=== PATIENT | male | born 1990 | race Caucasian/White ===

== ENCOUNTER 2017-06-25 09:31 | Emergency (ER) | payer BC, SELFPAY | END 2017-06-25 11:03 | disposition home or self-care (01) | PROVIDERS: Emergency Provider Nurse Practitioner Family; Family Provider Internal Medicine Adolescent Medicine; Visit Provider Nurse Practitioner Family | DX: R11.2 Nausea with vomiting, unspecified (principal); R19.7 Diarrhea, unspecified; J45.909 Unspecified asthma, uncomplicated | CPT/HCPCS: 99201 ==

== ENCOUNTER → 2018-09-16 08:31 | Outpatient (CLI) | payer BC, SELFPAY ==
--- NOTE | 2018-09-16 08:39 | US_ITS ---
US abdomen limited History:Upper abdominal pain with nausea and vomiting Ordering Physician:Brandon Pittman MD Patient Age: 27 years Comparison:None Findings: Pancreas:Unremarkable. No obvious mass or abnormal fluid collection. No ductal dilatation Liver:Unremarkable. No obvious mass or abnormal fluid collection. No ductal dilatation Right Kidney:Unremarkable. Normal size and echogenicity. No hydronephrosis Gallbladder:No gallstones, gallbladder wall thickening, pericholecystic fluid, or biliary dilatation. There is a Phrygian catheter present as a normal variant with a small amount sludge noted in the fundus of the gallbladder. Common bile duct is normal at 3 mm Impression: 1. Small amount sludge in the fundus of the gallbladder. 2. Otherwise negative right upper quadrant ultrasound
== END ==
PROVIDERS: PCP Internal Medicine Adolescent Medicine; Visit Provider Internal Medicine Adolescent Medicine
DX: R10.11 Right upper quadrant pain (principal)
CPT/HCPCS: 76705

== ENCOUNTER 2019-10-30 01:06 | Emergency (ER) | payer BC, SELFPAY ==
[2019-10-30 01:24] VITALS: BP 141/86; PULSE 133; RESP 24; TEMP 36.6; O2SAT 95; BMI 30.8
[2019-10-30 01:36] VITALS: BP 130/82; PULSE 89; RESP 16; O2SAT 95
--- NOTE | 2019-10-30 01:41 | PC.NURSE ---
I updated pt's and she will come back to pick him up when he is ready for discharge
[2019-10-30 01:45] LABS: Basophils # 0.2 K/mm3 (0-0.2); Basophils % 3.2 % (0.1-2.0); Eosinophils # 0.1 K/mm3 (0.0-0.4); Eosinophils % 1.9 % (0.1-12.0); Hematocrit 56.4 % (42.0-52.0); Lymphocytes # 3.3 K/mm3 (0.7-4.5); Lymphocytes % 46.2 % (10-50); Mean Corpuscular HGB Conc 34.5 g/dL (31.8-35.4); Mean Corpuscular Hemoglobin 29.6 pg (27.0-31.2); Mean Corpuscular Volume 85.8 fl (80-94); Mean Platelet Volume 7.6 fl (7.4-10.4); Monocytes # 0.4 K/mm3 (0.1-1.0); Monocytes % 5.4 % (1.7-9.3); Neutrophils # 3.1 K/mm3 (1.8-7.8); Neutrophils % 43.2 % (37.0-80.0); Platelet Count 274 K/mm3 (142-424); Red Blood Count 6.57 M/mm3 (4.60-6.20); Red Cell Distribution Width 12.3 % (11.5-17.5); White Blood Count 7.1 K/mm3 (4.8-10.8)
[2019-10-30 01:48] LABS: Chloride 106 mmol/L (98-107); Sodium 141 mmol/L (136-145)
--- NOTE | 2019-10-30 01:49 | PC.NURSE ---
Pt responded well to IV treatment, resting comfortably with normal resp. Pt states he feels much better and denies burning or airway issues
[2019-10-30 01:50] LABS: Alanine Aminotransferase 106 U/L (12-78); Aspartate Amino Transferase 59 U/L (17-59); Blood Urea Nitrogen 17 mg/dl (9-20); Creatinine Clearance Estimated 151 mL/min (50-200); Estimated Glomerular Filt Rate 79 ml/min (>60); GFR (African American) 95 ML/MIN (>60); Hemoglobin 19.7 g/dL (14.1-18.0)
[2019-10-30 01:51] LABS: Albumin Level 4.6 g/dl (3.5-5.0); Albumin/Globulin Ratio 1.3 (1.1-1.8); Alkaline Phosphatase 61 U/L (38-126); Bilirubin,Total 0.5 mg/dl (0.2-1.3); Calcium 9.6 mg/dl (8.4-10.2); Carbon Dioxide 24 mmol/L (22.0-30.0); Globulin 3.5 g/dL (1.3-3.2); Glucose 115 mg/dl (74-100); Total Protein,Serum 8.1 g/dl (6.3-8.2)
--- NOTE | 2019-10-30 01:59 | HMH.EDALLER ---
ED Disposition Clinical Impression: Allergic reaction Qualifiers: Encounter type: initial encounter Qualified Code(s): T78.40XA - Allergy, unspecified, initial encounter Disposition: Home, Self-Care Condition on Discharge: Good Instructions: DI for General Allergic Reactions Additional Instructions: fluids and see pcp and dr grimaldo for follow up Prescriptions: predniSONE [Prednisone 20mg Tab] 20 mg PO BID #10 tab Transmission Status: Pending to [facility] #[id number] Referrals: Brandon Pittman MD [Primary Care Provider] - Asad Grimaldo [Referring] - - Critical Care Critical Care Time: No Attestation: On 10/30/19, the high probability of a clinically significant, sudden or life threatening deterioration of the following system(s) required my full and direct attention, intervention and personal management. The time I documented below is in addition to time spent performing reported procedures but includes the following listed in this critical care notation. Medical Decision Making - Medical Records Medical records reviewed: Yes: I reviewed the patient's medical records. - Vasu Inquiry Pt receiving controlled substance: No Vital Signs: 10/30/19 01:24 10/30/19 01:36 Temperature 97.8 F Temperature Source Oral Pulse Rate [Right] 133 H 89 Respiratory Rate 24 16 Blood Pressure [Right Arm] 141/86 H 130/82 Blood Pressure Mean [Right Arm] 104 98 Blood Pressure Source [Right Arm] Automatic Cuff Automatic Cuff Blood Pressure Position [Right Arm] Supine Supine 02 Sat by Pulse Oximetry 95 95 Oxygen Delivery Method Room Air Room Air - Lab Data Lab results reviewed: Yes: I reviewed the patient's lab results. Lab Results 10/30/19 01:15: WBC 7.1, RBC 6.57 H, Hgb 19.7 H*, Hct 56.4 H, MCV 85.8, MCH 29.6, MCHC 34.5, RDW 12.3, Plt Count 274, MPV 7.6, Neut % (Auto) 43.2, Lymph % (Auto) 46.2, [place] % (Auto) 5.4, Eos % (Auto) 1.9, Baso % (Auto) 3.2 H, Neut # (Auto) 3.1, Lymph # (Auto) 3.3, [place] # (Auto) 0.4, Eos # (Auto) 0.1, Baso # (Auto) 0.2 10/30/19 01:15: Sodium 141, Potassium 4.0, Chloride 106, Carbon Dioxide 24, Anion Gap 15.0, BUN 17, Creatinine 1.10, Estimated Creat Clear 151, Estimated GFR 79, Est GFR ( Amer) 95, Glucose 115 H, Calcium 9.6, Total Bilirubin 0.5, AST 59, ALT 106 H, Alkaline Phosphatase 61, Total Protein 8.1, Albumin 4.6, Globulin 3.5 H, Albumin/Globulin Ratio 1.3 Result diagrams: 10/30/19 01:15 10/30/19 01:15 Orders (Tests/Meds): ED MEDICATIONS Generic Name Dose Route Start Last Admin Trade Name Freq PRN Reason Stop Dose Admin Sodium Chloride 1,000 mls @ 999 mls/hr 10/30/19 01:45 10/30/19 01:30 Sod Chlor 0.9% 1000ml Bag IV 10/30/19 02:45 999 mls/hr .Q1H1M OMAR Administration Sodium Chloride 8 ml 10/30/19 01:35 10/30/19 01:30 Sodium Chloride 0.9% 10ml Vial IV 11/29/19 01:34 8 ml NEEDED PRN Administration dilute pepcid Discontinued Medications Generic Name Dose Route Start Last Admin Trade Name Freq PRN Reason Stop Dose Admin Diphenhydramine HCl 50 mg 10/30/19 01:35 10/30/19 01:30 Benadryl 50mg/1ml Vial IV 10/30/19 01:36 50 mg ONCE ONE Administration Famotidine 20 mg 10/30/19 01:35 10/30/19 01:30 Pepcid 20mg/2ml Vial IV 10/30/19 01:36 20 mg ONCE ONE Administration Methylprednisolone Sodium Succinate 125 mg 10/30/19 01:35 10/30/19 01:30 Solu-Medrol 125mg/2ml Vial IV 10/30/19 01:36 125 mg ONCE ONE Administration Allergic React/Insect Bite HPI - General Chief complaint: Allergic Reaction Stated complaint: rash on shoulders/ back/ body Time Seen by Provider: 10/30/19 01:30 Mode of Arrival - ED Triage: Ambulatory Source of Information: Patient, Medical Record Limitations: No Limitations - History of Present Illness MD complaint: allergic reaction Onset (ago): hour(s) Symptoms: rash, itching, difficulty breathing Treatment prior to arrival: none Allergies/Adverse Reactions: Allergi
[2019-10-30 02:21] VITALS: BP 132/78; PULSE 76; RESP 14; TEMP 36.6; O2SAT 96
== END 2019-10-30 02:24 | disposition home or self-care (01) ==
PROVIDERS: Emergency Provider Emergency Medicine; PCP Internal Medicine Adolescent Medicine
DX: T78.40XA Allergy, unspecified, initial encounter (principal)
CPT/HCPCS: 80053; 85025; 96365; 96375; 99283

== ENCOUNTER 2020-02-23 13:51 | Emergency (ER) | payer BC, SELFPAY ==
[2020-02-23 14:05] VITALS: BMI 31.4
--- NOTE | 2020-02-23 14:06 | XR_ITS ---
PROCEDURE: XR ANKLE RT MIN 3V CLINICAL INDICATION: INJURY Posttraumatic pain COMPARISON: CR XR TIBIA FIBULA RT 2V from 02/23/2020 FINDINGS: No acute fracture or dislocation. Joint space is well preserved. The ankle mortise is preserved. 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 This appears well circumscribed on the lateral view there is less well circumscribed on the AP view. Follow-up suggested to confirm stability. The proximal mid aspect of the tibia and fibula have an unremarkable appearance. IMPRESSION: No acute fracture. 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 Recommend short-term radiographic follow-up in 3 months to confirm stability Dictated by: Dar Pacheco MD 02/23/2020 14:41 Dar Pacheco MD in [place] 02/23/2020 14:41
[2020-02-23 14:09] VITALS: BP 139/84; PULSE 87; RESP 20; TEMP 36.8; O2SAT 99; BMI 31.4
--- NOTE | 2020-02-23 14:15 | HMH.EDUTC ---
[facility] [place] Clinical Impression: High ankle sprain Qualifiers: Encounter type: initial encounter Laterality: right Qualified Code(s): S93.491A - Sprain of other ligament of right ankle, initial encounter Disposition: Home, Self-Care Condition on Discharge: Good Instructions: How to Use Crutches, Ankle Sprain, DI for Ankle Sprain, How To Perform RICE (Rest, Ice, Compress, Elevate) Additional Instructions: *weight bearing as tolerated *RICE, Rest the extremity, Ice 15-20 minutes 3-4 times daily, Compress- wear the ashish wrap as discussed as much as possible to help reduce swelling and pain, Elevate the extremity when at rest *Ashish wrap is for support and help control swelling, use it except in the shower. Be sure that is not to tight but not to loose either *Elevate when resting *Ibuprofen every 6-8 hours as needed for pain an inflammation. If need something more can take Tylenol in between doses of Ibuprofen to help Immediately follow up with your family doctor for new or worsening of symptoms, or no noticeable improvement over the next 3-[address] Wilburn, call office and make appointment Return in needed Referrals: Brandon Pittman MD [Primary Care Provider] - As needed Nicole Wilburn DPM [Staff Physician] - Forms: Work/School Release Time of Disposition: 15:14 Medical Decision Making - Vasu Inquiry Pt receiving controlled substance: No Vasu was queried for this patient: No Vital Signs: 02/23/20 14:09 Temperature 98.3 F Temperature Source Oral Pulse Rate [Left Brachial] 87 Respiratory Rate 20 Blood Pressure [Left Arm] 139/84 Blood Pressure Mean [Left Arm] 102 Blood Pressure Source [Left Arm] Automatic Cuff Blood Pressure Position [Left Arm] Sitting 02 Sat by Pulse Oximetry 99 Oxygen Delivery Method Room Air - Radiology Data #1 Image(s): Tib/Fib Image Reviewed: Yes I have reviewed radiologist's interpretation No acute fracture. 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 Recommend short-term radiographic follow-up in 3 months to confirm stability #2 Image(s): Ankle Image Reviewed: Yes I have reviewed radiologist's interpretation No acute fracture. 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 Recommend short-term radiographic follow-up in 3 months to confirm stability [facility] [place] - General Stated complaint: [id number] right ankle pain,home accident Time Seen by Provider: 02/23/20 14:10 Mode of Arrival: Ambulatory Source of Information: Patient Limitations: No Limitations Description of Symptoms (Recalled from Triage Doc. by RN): PATIENT C/O RIGHT ANKLE PAIN AND SWELLING AFTER FALLING AND TWISTING IT WHILE PLAYING BASKETBALL LAST NIGHT HEENT Symptoms (Recalled from RN notes): No Resp Symptoms (Recalled from RN notes): No Skin Symptoms (Recalled from RN notes): No MS Symptoms (Recalled from RN notes): Yes Functional Status (Recalled from RN notes): WNL - History of Present Illness Provider Complaint: Patient states that he was playing basketball last night and when he came down his right foot went into a crack in the concrete and he rolled his right ankle and felt a pop in his right lower leg/ankle area States that he has been able to walk on it but when he turns it it shoots from his ankle up into his lower leg States that today was hurting worse so he came in to get it checked - Related Data Home Medications Medication Instructions Recorded Confirmed No Known Home Medications 02/23/20 02/23/20 Allergies Allergy/AdvReac Type Severity Reaction Status Date / Time No Known Allergies Allergy Verified 09/08/18 09:20 - Worker's Comp Is this a Worker's Comp case?: No [facility] History - Hepatitis A Screen Drug use history?: No High risk sexual behaviors?: No History of sexually transmitted infection?: No Currently
[2020-02-23 15:20] VITALS: BP 139/84; PULSE 87; RESP 20; TEMP 36.8; O2SAT 99
== END 2020-02-23 15:21 | disposition home or self-care (01) ==
PROVIDERS: Emergency Provider Nurse Practitioner; PCP Internal Medicine Adolescent Medicine
DX: S93.491A Sprain of other ligament of right ankle, initial encounter (principal); X50.1XXA Overexertion from prolonged static or awkward postures, initial encounter; Y93.67 Activity, basketball; Y92.89 Other specified places as the place of occurrence of the external cause
CPT/HCPCS: 29515; 73590; 73610; 99202

== ENCOUNTER 2020-11-28 09:04 | Emergency (ER) | payer BC, SELFPAY ==
--- NOTE | 2020-11-28 09:41 | HMH.EDUTC ---
[facility] [place] Clinical Impression: Sinusitis Qualifiers: Sinusitis location: unspecified location Chronicity: acute Recurrence: non-recurrent Qualified Code(s): J01.90 - Acute sinusitis, unspecified Pharyngitis Qualifiers: Pharyngitis/tonsillitis etiology: unspecified etiology Qualified Code(s): J02.9 - Acute pharyngitis, unspecified Disposition: Home, Self-Care Condition on Discharge: Good Instructions: DI for Sinusitis Additional Instructions: Drink plenty of fluids. Take tylenol or ibuprofen for pain or fever. Take the medications as directed. Follow up with your regular doctor. GO TO THE ER FOR ANY WORSENING SYMPTOMS The cough medication (promethazine dm) will make you drowsy, so don't drive or operate heavy machinery after taking it. Prescriptions: Promethazine/Dextromethorphan [Promethazine-Dm Syrup] 5 ml PO Q6HP PRN #240 syrup PRN Reason: Cough Transmission Status: Received by [facility] #[id number] methylPREDNISolone [Medrol] 4 mg PO DIRECTED 6 Days #21 tab.ds.pk Transmission Status: Received by [facility] #[id number] Azithromycin [Z-Alexander 250mg Tab*] 250 mg PO UD DOSE PK #6 tab Transmission Status: Received by [facility] #[id number] Referrals: Brandon Pittman MD [Primary Care Provider] - Forms: Work/School Release Time of Disposition: 09:45 Medical Decision Making - Medical Records Medical records reviewed: No: I reviewed the patient's medical records. - Vasu Inquiry Pt receiving controlled substance: No Vital Signs: 11/28/20 09:44 11/28/20 09:47 Temperature 98.1 F 98.1 F Temperature Source Oral Pulse Rate 89 Pulse Rate [Left] 89 Respiratory Rate 19 19 Blood Pressure 127/84 Blood Pressure [Right Arm] 127/84 Blood Pressure Mean [Right Arm] 98 02 Sat by Pulse Oximetry 96 - Lab Data Lab results reviewed: Yes: I reviewed the patient's lab results. Lab Results 11/28/20 10:22: Strep Scn Rapid Clinic Negative Orders (Tests/Meds): ORDERS Category Date Time Status Strep Screen Confirmation Stat Micro 11/28/20 10:22 Received [facility] [place] HPI - General Stated complaint: head congestion Time Seen by Provider: 11/28/20 09:44 - History of Present Illness Provider Complaint: He states that he has had sinus congestion, sore throat, sinus pressure for the past 1 week. He has began to have low grade fever and ear pain. - Related Data Previous Rx's Medication Instructions Recorded Azithromycin [Z-Alexander 250mg Tab*] 250 mg PO UD DOSE PK #6 tab 11/28/20 Promethazine/Dextromethorphan 5 ml PO Q6HP PRN #240 syrup 11/28/20 [Promethazine-Dm Syrup] methylPREDNISolone [Medrol] 4 mg PO DIRECTED 6 Days #21 11/28/20 tab.ds.pk Allergies Allergy/AdvReac Type Severity Reaction Status Date / Time No Known Allergies Allergy Verified 11/28/20 09:47 [facility] History - Hepatitis A Screen Attestation statement:: This patient has been screened for Hepatitis A risk factors. I have reviewed the patient's past medical history: Yes Medical History: Denies:: Cancer, Diabetes Mellitus Type 1, Diabetes Mellitus Type 2, MRSA Other Surgeries: Yes: Other Amputation: No Fractures: No Comment: right hand surgery, kidney stones - Social History Smoking Status: Never smoker Tobacco Type: cigarettes Alcohol Intake: never Alcohol Intake Frequency:: holidays/special occasions only Occupational Status: other Household Members: family Family Hx:: No significant family history ROS Obtained: Yes All systems reviewed & no additional complaints - Constitutional Constitutional: Reports chills, Reports fever(s), Reports poor appetite, Reports malaise - Eyes Eyes: Denies eye discharge - ENT Ears, Nose, Mouth, and Throat: Reports as per HPI - Cardiovascular Cardiovascular: Denies chest pain - Respiratory Respiratory: Reports chest congestion, Reports cough, Denies dyspnea, Denies stridor, Denies wheezing - Gastrointestinal Nabeel
[2020-11-28 09:44] VITALS: BP 127/84; PULSE 89; RESP 19; TEMP 36.7; O2SAT 96; BMI 30.8
[2020-11-28 09:47] VITALS: BP 127/84; PULSE 89; RESP 19; TEMP 36.7; O2SAT 96
[2020-11-28 10:57] LABS: UTC Strep Screen (Rapid) Negative (Negative)
== END 2020-11-28 09:48 | disposition home or self-care (01) ==
PROVIDERS: Emergency Provider Nurse Practitioner Family; PCP Internal Medicine Adolescent Medicine
DX: J01.90 Acute sinusitis, unspecified (principal); J02.9 Acute pharyngitis, unspecified
CPT/HCPCS: 87880; 99202; G0463

== ENCOUNTER 2021-01-30 19:06 | Emergency (ER) | payer BC, SELFPAY ==
[2021-01-30 19:07] VITALS: BP 143/85; PULSE 97; RESP 18; TEMP 36.8; O2SAT 98; BMI 30.6
--- NOTE | 2021-01-30 19:23 | HMH.EDALLER ---
ED Disposition Clinical Impression: Urticaria Disposition: Home, Self-Care Condition on Discharge: Good Instructions: DI for Rash Prescriptions: methylPREDNISolone [Medrol 4mg tab] 4 mg PO DIRECTED #21 tab Transmission Status: Pending to [facility] #[id number] Referrals: Brandon Pittman MD [Primary Care Provider] - - Critical Care Critical Care Time: No Attestation: On 01/30/21, the high probability of a clinically significant, sudden or life threatening deterioration of the following system(s) required my full and direct attention, intervention and personal management. The time I documented below is in addition to time spent performing reported procedures but includes the following listed in this critical care notation. Medical Decision Making - Medical Records Medical records reviewed: Yes: I reviewed the patient's medical records. - Vasu Inquiry Pt receiving controlled substance: No Vital Signs: 01/30/21 19:07 01/30/21 20:05 Temperature 98.2 F 98 F Temperature Source Oral Oral Pulse Rate 76 Pulse Rate [Right] 97 H Respiratory Rate 18 17 Blood Pressure 94/45 L Blood Pressure [Right Arm] 143/85 H Blood Pressure Mean [Right Arm] 104 Blood Pressure Source Automatic Cuff Blood Pressure Source [Right Arm] Automatic Cuff Blood Pressure Position Supine 02 Sat by Pulse Oximetry 98 97 Oxygen Delivery Method Room Air Room Air Orders (Tests/Meds): ED MEDICATIONS Generic Name Dose Route Start Last Admin Trade Name Freq PRN Reason Stop Dose Admin Sodium Chloride 1,000 mls @ 999 mls/hr 01/30/21 19:30 01/30/21 19:25 Sod Chlor 0.9% 1000ml Bag IV 01/30/21 20:30 999 mls/hr .Q1H1M OMAR Administration Sodium Chloride 8 ml 01/30/21 19:19 Sodium Chloride 0.9% 10ml Vial IV 03/01/21 19:18 NEEDED PRN dilute pepcid Discontinued Medications Generic Name Dose Route Start Last Admin Trade Name Freq PRN Reason Stop Dose Admin Diphenhydramine HCl 25 mg 01/30/21 19:19 01/30/21 19:25 Diphenhydramine 50mg/Ml Vial IV 01/30/21 19:20 25 mg ONCE ONE Administration Famotidine 20 mg 01/30/21 19:19 01/30/21 19:25 Famotidine 20mg/2ml Vial IV 01/30/21 19:20 20 mg ONCE ONE Administration Methylprednisolone Sodium Succinate 125 mg 01/30/21 19:19 01/30/21 19:25 Methylprednisolone Sod Succ 125mg Vial IV 01/30/21 19:20 125 mg ONCE ONE Administration - Reevaluation(s) Time: 20:20 Reevaluation #1: On reevaluation, patient tolerated treatment well. His itching is improved. Rash is also improved. Repeat examination does not show any abnormalities in the oropharynx, no pooling secretions, no respiratory distress. Patient was given strict return precautions. Needs repeat evaluation in 24 hours. Patient verbalized understanding. Medical Decision Narrative: 30-year-old male presented to the emergency department with a rash. Findings are consistent with acute urticaria. Patient has no evidence of anaphylaxis. No airway compromise. Patient be treated symptomatically reevaluated. Patient is unsure of what his trigger was. Allergic React/Insect Bite HPI - General Chief complaint: Allergic Reaction Stated complaint: hives on back Time Seen by Provider: 01/30/21 19:10 Mode of Arrival - ED Triage: Ambulatory Limitations: No Limitations - History of Present Illness HPI narrative: This is a 30-year-old male presented to the emergency department with possible allergic reaction. Patient's had numerous episodes of this before in the past. He is unsure what the exact contact was. However about 1 hour ago the patient started noticing some hives on his back, upper torso and arms. Patient is complaining some mild itching. He denies any airway compromise or difficulty breathing at this time. No wheezing. No pooling of secretions. Denies any fevers or chills. Is not have any chest pain or palpitations. No abdominal pain, vomiting or di
[2021-01-30 20:05] VITALS: BP 94/45; PULSE 76; RESP 17; TEMP 36.6; O2SAT 97
[2021-01-30 20:31] VITALS: BP 100/41; PULSE 96; RESP 16; TEMP 36.8; O2SAT 95
== END 2021-01-30 20:39 | disposition home or self-care (01) ==
PROVIDERS: Emergency Provider Emergency Medicine; PCP Internal Medicine Adolescent Medicine
DX: L50.9 Urticaria, unspecified (principal)
CPT/HCPCS: 96365; 96375; 99281

== ENCOUNTER 2021-06-08 11:07 | Emergency (ER) | payer BC, SELFPAY ==
[2021-06-08 12:10] VITALS: BP 135/86; PULSE 87; RESP 19; TEMP 37.1; O2SAT 99; BMI 29.0
--- NOTE | 2021-06-08 13:07 | HMH.EDUTC ---
[facility] [place] Clinical Impression: Bronchitis Sinusitis Qualifiers: Sinusitis location: unspecified location Chronicity: unspecified Qualified Code(s): J32.9 - Chronic sinusitis, unspecified Disposition: Home, Self-Care Condition on Discharge: Good Instructions: Sinusitis, DI for Sinusitis, DI for COVID-19 (Suspected or Confirmed ), Preventing the Spread of Coronavirus Discharge Instructions Additional Instructions: *Monitor Temp, Over the counter Motrin or Tylenol as directed/as needed Tylenol every 4 hours and Motrin every 6 hours (as long as your family doctor has told you that you can take it) for fever or pain. and straight to ER if unable to lower temp less than 101.0 after medication given *Warm salt water gargles may help to soothe the throat *Throat Lozenges *Warm fluids like tea with honey may help to soothe the throat *Sleep elevated *Humidifier/Vaporizer *Bromfed may cause drowsiness. Know how it effects you (your child) before driving, caring for small child, or sending your child to school. Not other antihistamines/allergy medications while taking bromfed Follow up IMMEDIATELY for new or worsening symptoms or no Noticeable improvement over the next 48-72 hours. 911 for difficulty breathing or swallowing You were tested for today for COVID19 your test result should be back in the next 24-48 hours, you may Check your results on the [facility] My health portal or in person at the Health information from [phone] if you have issues logging operations leader [phone] You was given a handout with instructions for Self Quarantine and Self isolation for while you wait on test results and what to do if they are positive If you are positive the Health Dept will be contacting you also Make sure to take your Vitamins Vit. C Vit D and Zinc if you can take them Prescriptions: Albuterol Sulfate [Proventil-HFA 90mcg/puff Inh] 1 - 2 puffs IH Q6HP PRN #1 each PRN Reason: Shortness Of Breath Transmission Status: Pending to [facility] # Amoxicillin/Potassium Clav [Augmentin 875-125 Tablet] 1 tab PO Q12H 7 Days #14 tab Transmission Status: Pending to [facility] # Brompheniramine/Pseudoephed/Dm [Bromfed Dm Cough Syrup] 5 - 10 ml PO Q46H PRN #250 ml PRN Reason: Cough Transmission Status: Pending to [facility] # predniSONE [Prednisone 20mg Tab] 20 mg PO BID 5 Days #10 tab Transmission Status: Pending to [facility] # Referrals: Brandon Pittman MD [Primary Care Provider] - As needed Forms: Work/School Release Time of Disposition: 13:19 Medical Decision Making - Vasu Inquiry Pt receiving controlled substance: No Vasu was queried for this patient: No Vital Signs: 06/08/21 12:10 Temperature 98.8 F Temperature Source Oral Pulse Rate [Right Brachial] 87 Respiratory Rate 19 Blood Pressure [Right Arm] 135/86 Blood Pressure Mean [Right Arm] 102 Blood Pressure Source [Right Arm] Automatic Cuff Blood Pressure Position [Right Arm] Sitting 02 Sat by Pulse Oximetry 99 Oxygen Delivery Method Room Air - Lab Data Lab results reviewed: Yes: I reviewed the patient's lab results. Orders (Tests/Meds): ORDERS Category Date Time Status Covid-19 Nasal PCR ([facility]) Routine Lab 06/08/21 13:12 Ordered [facility] [place] HPI - General Stated complaint: sinus pressure, headaches Time Seen by Provider: 06/08/21 13:12 Mode of Arrival: Ambulatory Source of Information: Patient Limitations: No Limitations Description of Symptoms (Recalled from Triage Doc. by RN): PATIENT C/O HEADACHE, SINUS PRESSURE, CHEST CONGESTION, AND TIGHTNESS IN NECK AND SHOULDERS X 3 DAYS HEENT Symptoms (Recalled from RN notes): Yes Resp Symptoms (Recalled from RN notes): No Skin Symptoms (Recalled from RN notes): No MS Symptoms (Recalled from RN notes): Yes Functional Status (Recalled from RN notes): WNL - History of Present Illness Provider Complaint: Patient states that he hasnt felt well fo
[2021-06-08 13:22] VITALS: BP 135/86; PULSE 87; RESP 19; TEMP 37.1; O2SAT 99
== END 2021-06-08 13:25 | disposition home or self-care (01) ==
PROVIDERS: Emergency Provider Nurse Practitioner; PCP Internal Medicine Adolescent Medicine
DX: U07.1 COVID-19 (principal); J20.9 Acute bronchitis, unspecified; J32.9 Chronic sinusitis, unspecified
CPT/HCPCS: 99202; C9803; G0463; U0003; U0005

== ENCOUNTER → 2022-10-21 08:11 | Outpatient (CLI) | payer OTHER, SELFPAY ==
[2022-10-21 09:50] LABS: Basophils % 0.5 % (0.1-2.0); Eosinophils # 0.1 K/mm3 (0.0-0.4); Eosinophils % 0.9 % (0.1-12.0); Hematocrit 47.1 % (42.0-52.0); Hemoglobin 15.5 g/dL (14.1-18.0); Lymphocytes # 2.3 K/mm3 (0.7-4.5); Lymphocytes % 39.1 % (10-50); Mean Corpuscular Hemoglobin 29.5 pg (27.0-31.2); Mean Corpuscular Volume 89.4 fl (80-94); Mean Platelet Volume 7.9 fl (7.4-10.4); Monocytes # 0.4 K/mm3 (0.1-1.0); Monocytes % 7.1 % (1.7-9.3); Neutrophils # 3.1 K/mm3 (1.8-7.8); Neutrophils % 52.4 % (37.0-80.0); Platelet Count 197 K/mm3 (142-424); Red Blood Count 5.27 M/mm3 (4.60-6.20); Red Cell Distribution Width 12.8 % (11.5-17.5); White Blood Count 5.8 K/mm3 (4.8-10.8)
[2022-10-21 10:04] LABS: Alanine Aminotransferase 64 U/L (12-78); Albumin Level 4.2 g/dl (3.5-5.0); Albumin/Globulin Ratio 1.6 (1.1-1.8); Alkaline Phosphatase 39 U/L (38-126); Anion Gap 8.7 mEq/L (5-15); Aspartate Amino Transferase 33 U/L (17-59); Bilirubin,Total 0.8 mg/dl (0.2-1.3); Blood Urea Nitrogen 17 mg/dl (9-20); Calcium 8.5 mg/dl (8.4-10.2); Carbon Dioxide 28 mmol/L (22.0-30.0); Chloride 104 mmol/L (98-107); Chol/HDL Ratio 3.3 (1-3.5); Cholesterol 147 mg/dl (140-200); Estimated Glomerular Filt Rate 86 ml/min (>60); GFR (African American) 104 ML/MIN (>60); Globulin 2.7 g/dL (1.3-3.2); Glucose 95 mg/dl (74-100); HDL Cholesterol 45 mg/dl (40-60); Potassium 3.7 mmoL/L (3.5-5.1); Sodium 137 mmol/L (136-145); Total Protein,Serum 6.9 g/dl (6.3-8.2); Triglycerides 106 mg/dl (30-150); VLDL Cholesterol 21 mg/dL (0-40)
[2022-10-21 10:37] LABS: Thyroid Stimulating Hormone 0.73 uIU/mL (0.465-4.68)
== END ==
PROVIDERS: PCP Nurse Practitioner Family; Visit Provider Nurse Practitioner Family
DX: Z00.00 Encounter for general adult medical examination without abnormal findings (principal)
CPT/HCPCS: 36415; 80053; 80061; 83036; 84443; 85025

== ENCOUNTER 2023-06-08 13:45 | Emergency (ER) | payer OTHER, SELFPAY ==
[2023-06-08 14:00] VITALS: BP 143/90; PULSE 87; RESP 21; TEMP 36.7; O2SAT 98; BMI 31.4
--- NOTE | 2023-06-08 14:04 | EXP.UTC ---
Discharge Plan Disposition Patient Disposition: Home, Self-Care Condition: Good Prescriptions Prescriptions: New methylprednisolone 4 mg Tablets,Dose Pack 4 mg PO DIRECTED Qty: 21 0RF albuterol sulfate [Ventolin HFA] 90 mcg/actuation HFA aerosol inhaler 2 puff inhalation Q6H PRN (Reason: shortness of breath or wheezing) Qty: 6.7 0RF cefdinir 300 mg capsule 300 mg PO BID Qty: 20 0RF guaifenesin [Mucinex] 600 mg tablet extended release 12hr 600 - 1,200 mg PO BIDP PRN (Reason: Congestion) Qty: 30 0RF No Action prednisone 20 MG tablet 20 mg PO BID 5 Days Qty: 10 0RF zxbgbbibjhlltvw-tkxajsvpp-TV 118 ML syrup 5 - 10 ml PO Q46H PRN (Reason: Cough) Qty: 250 0RF amoxicillin-pot clavulanate 1 EACH tablet 1 tab PO Q12H 7 Days Qty: 14 0RF albuterol sulfate 200 PUFFS HFA aerosol inhaler 1 - 2 puffs IH Q6HP PRN (Reason: Shortness Of Breath) Qty: 1 0RF Referrals Follow up/Referrals: Brandon Pittman MD [Primary Care Provider] - See instructions Activity Restrictions/Add. Instructions Additional Instructions/Restrictions: Drink plenty of fluids. Take tylenol or ibuprofen for pain or fever. Take the medications as directed. Follow up with your regular doctor. GO TO THE ER FOR ANY WORSENING SYMPTOMS Don't start the oral steroids (methylprednisone pack) until tomorrow, since you had the shot here today. Clinical Impressions Clinical Impression: Acute bronchitis Instructions Patient Instructions: Acute Bronchitis, DI for Acute Bronchitis Discharge ED Provider: Demetrius Ludwig [facility] General Stated complaint: cough and congestion Time Seen by Provider: 06/08/23 14:04 History of Present Illness Provider Complaint: He states that for the past 1 week he has had worsening chest congestion. He states that he is having severe coughing spells at times. He denies any fever/chills/body aches. Related Data Previous Rx's Medication Instructions Recorded albuterol sulfate 90 mcg/actuation 1 - 2 puffs IH Q6HP PRN Shortness 06/08/21 aerosol inhaler Of Breath #1 ea amoxicillin 875 mg-potassium 1 tab PO Q12H 7 days #14 tabs 06/08/21 clavulanate 125 mg tablet irexrclfhemdqlr-aeciburpsewhdic-VE 5 - 10 ml PO Q46H PRN Cough #250 mL 06/08/21 2 mg-30 mg-10 mg/5 mL oral syrup prednisone 20 mg tablet 20 mg PO BID 5 days #10 tabs 06/08/21 albuterol sulfate 90 mcg/actuation 2 puff inhalation Q6H PRN 06/08/23 aerosol inhaler (Ventolin HFA) shortness of breath or wheezing #6.7 grams cefdinir 300 mg capsule 300 mg PO BID #20 caps 06/08/23 guaifenesin 600 mg tablet, 600 - 1,200 mg PO BIDP PRN 06/08/23 extended release 12 hr (Mucinex) Congestion #30 tabs methylprednisolone 4 mg tablets in 4 mg PO DIRECTED #21 tabs 06/08/23 a dose pack Allergies Allergy/AdvReac Type Severity Reaction Status Date / Time No Known Allergies Allergy Verified 06/08/23 14:23 [facility] Disclaimer: The information contained in this section may have been updated after the patient was seen, as this information can be updated by other users. Social History Smoking Status: Never smoker second hand exposure: No alcohol intake: never current occupational status: other Travel in the last 8 weeks: None household members: family ROS Obtained: Yes All systems reviewed & no additional complaints except as documented Constitutional Constitutional: Reports poor appetite Eyes Eyes: Reports system reviewed and no additional complaints, except as documented ENT Ears, Nose, Mouth, and Throat: Reports as per HPI Cardiovascular Cardiovascular: Reports system reviewed and no additional complaints, except as documented and Denies chest pain Respiratory Respiratory: Denies shortness of breath, Reports chest congestion, Reports cough, Denies stridor and Reports wheezing Gastrointestinal Gastrointestingal: Reports system reviewed and no additiona
--- NOTE | 2023-06-08 14:30 | XR_ITS ---
FINAL REPORT TECHNIQUE: Chest PA & Lateral CLINICAL HISTORY: SOB COMPARISON: 02/17/2018 FINDINGS: 2 views of the chest were performed. The heart size is normal. The mediastinum is within normal limits. There is no acute cardiopulmonary process. There are no pleural effusions. There is no pneumothorax. The bony thorax appears intact. IMPRESSION: No acute cardiopulmonary process. Reviewed, Interpreted and Dictated by Tadeo Tabares MD Transcribed by Hanna Reddy Authenticated and [facility]
[2023-06-08 15:50] VITALS: BP 143/90; PULSE 87; RESP 21; TEMP 36.7; O2SAT 98
== END 2023-06-08 15:40 | disposition home or self-care (01) ==
PROVIDERS: Emergency Provider Nurse Practitioner Family; PCP Internal Medicine Adolescent Medicine
DX: J20.9 Acute bronchitis, unspecified (principal); R05.9 Cough, unspecified; R09.89 Other specified symptoms and signs involving the circulatory and respiratory systems
CPT/HCPCS: 71046; 87635; 96372; 99212; 99214; G0463

== ENCOUNTER 2024-08-08 11:56 | Emergency (ER) | payer BC, SELFPAY ==
[2024-08-08 13:00] VITALS: BP 121/77; PULSE 71; RESP 19; TEMP 36.7; O2SAT 99; BMI 32.5
--- NOTE | 2024-08-08 13:03 | EXP.UTC ---
Discharge Plan Disposition Patient Disposition: Home, Self-Care Condition: Good Prescriptions Prescriptions: New famotidine 40 mg tablet 40 mg PO DAILY 30 Days Qty: 30 0RF ondansetron 4 mg Tablet,Disintegrating 4 mg PO Q8H PRN (Reason: Nausea) Qty: 12 0RF dicyclomine 20 mg tablet 20 mg PO TID PRN (Reason: abdominal pain) Qty: 20 0RF Referrals Follow up/Referrals: Brandon Pittman MD [Primary Care Provider] - See instructions Activity Restrictions/Add. Instructions Additional Instructions/Restrictions: Drink plenty of fluids. Take tylenol or ibuprofen for pain or fever. Take the medications as directed. Follow up with your regular doctor. GO TO THE ER FOR ANY WORSENING SYMPTOMS Return a stool sample so it can be analyzed for different infections. Your symptoms seem like you might have food poisoning and that how you find out what's causing it so it can be treated correctly. Clinical Impressions Clinical Impression: Gastritis, Diarrhea Instructions Patient Instructions: DI for Gastritis, Ondansetron, Ondansetron Injection, Dicyclomine, Famotidine Print Language Print Language: Indonesian Discharge ED Provider: Demetrius Ludwig [facility] General Stated complaint: Abd Cramping, excessive belching Time Seen by Provider: 08/08/24 13:03 History of Present Illness Provider Complaint: He states that for the past 5 days he has had frequent diarrhea stools, foul tasting belches, abdominal cramping, heart burn and nausea. Related Data Previous Rx's ?Medication ?Instructions ?Recorded dicyclomine 20 mg tablet 20 mg PO TID PRN abdominal pain 08/08/24 #20 tabs famotidine 40 mg tablet 40 mg PO DAILY 30 days #30 tabs 08/08/24 ondansetron 4 mg disintegrating 4 mg PO Q8H PRN Nausea #12 tabs 08/08/24 tablet Allergies Allergy/AdvReac Type Severity Reaction Status Date / Time No Known Allergies Allergy Verified 06/08/23 14:23 [facility] Disclaimer: The information contained in this section may have been updated after the patient was seen, as this information can be updated by other users. Medical History (Updated 08/08/24 @ 13:56 by Demetrius Ludwig APRN) Asthma Social History Smoking Status: Never smoker second hand exposure: No alcohol intake: never current occupational status: other Travel in the last 8 weeks: None household members: family Have you lived/traveled outside [place] in past 30 days?: No Contact w/someone who lives/traveled outside [place] past 30 days?: No Exposure to someone with infectious disease in past 14 days?: No Do you have a fever (greater than 100.4 F or 38 C)?: No Have you tested positive for COVID-19: No Exposed to someone with COVID-19 in past 14 days?: No Do you have a sore throat?: No Do you have a cough?: No Do you have any weakness?: No Do you have any diarrhea?: No Are you experiencing any unusual bleeding?: No Do you have any muscle aches/pain?: No Do you have any abdominal pain?: Yes Are you experiencing loss of taste or smell?: No ROS Obtained: Yes All systems reviewed & no additional complaints except as documented Constitutional Constitutional: Denies chills, Denies fever(s) and Reports poor appetite ENT Ears, Nose, Mouth, and Throat: Denies dizziness, Denies odynophagia and Denies sore throat Cardiovascular Cardiovascular: Denies dyspnea Respiratory Respiratory: Denies chest congestion, Denies cough and Denies dyspnea Gastrointestinal Gastrointestingal: Reports as per HPI, belching, bloating, cramping, diarrhea, dyspepsia, early satiety, heartburn and nausea; Denies abdominal pain, hematemesis, hematochezia, melena, odynophagia, tenesmus or vomiting Musculoskeletal Musculoskeletal: Denies arthralgias Integumentary/Breasts Skin/Breast: Denies rash Neurologic Neurologic: Denies dizziness Physical Exam General General appearance: alert and in no apparent distress Head Head exam: atraumatic and normocephalic Eye Eye exam: Present normal appearance, PERRL and EOMI ENT ENT exam: Present normal exam, normal oropharynx, mucous membranes moist, TM's normal bilaterally and normal external ear exam Neck Neck exam: Present normal inspection, full ROM and trachea midline; Absent tenderness, meningismus or lymphadenopathy Chest Chest inspection: Present normal inspection and symmetric chest wall rise; Absent tenderness, rash or abscess Respiratory Respiratory exam: Present normal lung sounds bilaterally; Absent respiratory distress, wheezes or stridor Cardiovascular Cardiovascular exam: Present regular rate and normal rhythm; Absent irregular rhythm, systolic murmur, diastolic murmur or JVD Abdominal Exam Abdominal exam: Present soft, distention, tenderness and hyperactive bowel sounds; Absent guarding, rebound, rigidity, psoas sign, obturator sign, heel tap sign, Jones's sign, Rovsing's sign or tenderness at McBurney's Point Extremities Exam Extremities exam: Present normal inspection and full ROM; Absent tenderness Back Exam Back exam: Present normal inspection and full ROM; Absent tenderness, CVA tenderness (R) or CVA tenderness (L) Neurological Exam Neurological exam: Present alert, oriented X3 and CN II-XII intact Psychiatric Psychiatric exam: Present normal affect and normal mood Skin Skin exam: Present warm, dry, intact and normal color Lymphatic Lymphatic Findings: no adenopathy Medical Decision Making Medical Records Medical records reviewed: No I reviewed the patient's medical records. Screening: Per USPSTF and CDC recommendations, given the prevalence of disease in our region, it is our hospital?s policy to screen for HIV and viral Hepatitis for all patients aged 18 and over and those with ongoing risk factors. Vasu Inquiry Pt receiving controlled substance: No Lab Data Lab results reviewed: Yes I reviewed the patient's lab results.
[2024-08-08 14:04] VITALS: BP 121/77; PULSE 71; RESP 19; TEMP 36.7; O2SAT 99
[2024-08-08 15:48] LABS: Adenovirus F 40/41, stool Not Detected (NotDetected); Astrovirus Not Detected (NotDetected); Campylobacter Not Detected (NotDetected); Clostridium Difficile A/B, PCR Not Detected (NotDetected); Cryptosporidium Not Detected (NotDetected); Cyclospora Cayetanesis Not Detected (NotDetected); Entamoeba histolytica Not Detected (NotDetected); Enteroaggregative E coli Not Detected (NotDetected); Enteropathogenic E coli Not Detected (NotDetected); Enterotoxigenic E coli Not Detected (NotDetected); Giardia lamblia Not Detected (NotDetected); Norovirus Not Detected (NotDetected); Plesimonas Shigalloides, PCR Not Detected (NotDetected); Rotavirus A Not Detected (NotDetected); Salmonella, PCR Not Detected (NotDetected); Sapovirus Not Detected (NotDetected); Shiga-like toxin E coli Not Detected (NotDetected); Shigella Enterovasive E coli Not Detected (NotDetected); Vibrio Cholerae Not Detected (NotDetected); Vibrio, PCR Not Detected (NotDetected); Yersinia Entercolitica, PCR Not Detected (NotDetected)
[2024-08-10 14:22] LABS: H. pylori Breath Test Negative (Negative)
== END 2024-08-08 14:08 | disposition home or self-care (01) ==
PROVIDERS: Emergency Provider Nurse Practitioner Family; PCP Internal Medicine Adolescent Medicine
DX: K29.70 Gastritis, unspecified, without bleeding (principal); R19.7 Diarrhea, unspecified
CPT/HCPCS: 83013; 87507; 99213; G0381

== ENCOUNTER 2025-06-05 08:17 | Outpatient (CLI) | payer BC, SELFPAY ==
--- NOTE | 2025-06-05 08:30 | US_ITS ---
FINAL REPORT TECHNIQUE: Sonographic images of the abdomen were obtained in all four quadrants. CLINICAL HISTORY: Abd pain/hernia COMPARISON: None FINDINGS: LIVER: There is fatty infiltration of the liver without focal lesion. The portal vein is patent. GALLBLADDER: No gallstones. No pericholecystic fluid collection or gallbladder wall thickening. The common duct measures 3 mm. This is within normal limits for age. PANCREAS: Unremarkable. RIGHT KIDNEY: 9.6 cm. No hydronephrosis, mass or stone. LEFT KIDNEY: 10.4 cm. No hydronephrosis, mass or stone. SPLEEN: 12.0 cm. No focal splenic lesion. AORTA/IVC: No abdominal aortic aneurysm. Visualized IVC within normal limits. OTHER: There appears to be a small fat-containing hernia at the umbilicus. IMPRESSION: Fatty liver. Small fat-containing umbilical hernia Reviewed, Interpreted and Dictated by Laura Aleman MD Transcribed by Debra Butler Authenticated and [facility]
== END 2025-06-05 23:59 | disposition home or self-care (01) ==
LOC: RAD 08:17
PROVIDERS: PCP Internal Medicine; Visit Provider Internal Medicine
DX: K76.0 Fatty (change of) liver, not elsewhere classified (principal); K42.9 Umbilical hernia without obstruction or gangrene
CPT/HCPCS: 76700